=== PATIENT | male | born 1965 | race Caucasian/White ===

== ENCOUNTER → 2024-05-04 06:20 | Day surgery (SDC) | payer OTHER, SELFPAY | LOC: GI 06:20 | PROVIDERS: ATTENDING PHYSICIAN Internal Medicine Gastroenterology | DX: Z12.11 Encounter for screening for malignant neoplasm of colon (principal); K64.8 Other hemorrhoids; Z86.010 Personal history of colon polyps | CPT/HCPCS: G0105 ==